=== PATIENT | female | born 1990 | race Two or more races ===

== ENCOUNTER 2024-04-18 08:48 | Emergency (ER) | payer MEDICAID, SELFPAY ==
--- NOTE | 2024-04-18 09:03 | PD.EDABDPN ---
ED Abdominal Pain RME/HPI General Chief Complaint: Abdominal Pain Stated complaint: ABD PAIN Time seen by provider: 04/18/24 08:54 Arrival date/time: 04/18/24 08:48 RME / HPI RME / HPI narrative: This section includes all my notes and documentations, including HPI, PE, and ED course.? Pk Valdez MD HPI: 33 year old female with no stated medical history presents to the ED for evaluation of abdominal pain beginning 2 days ago. Described as aching in sensation that is located most to the epigastric and right upper quadrant. Accompanied by nausea and nonbloody vomiting. Denies any history of similar pain. Denies any changes in appetite. Denies fevers, chills, chest pain, shortness of breath, cough, diarrhea, or urinary symptoms. No previous abdominal surgeries. No other complaints. ROS: All negative except as documented in HPI. Physical Exam: General:? Alert and oriented.? No acute distress when remaining still.?? Eyes:? Conjunctivae and lids clear.? ENT:? No nasal congestion.? Neck:? Supple.? Heart:? RRR.? Lungs:? No respiratory distress.? Good air movement.? No rhonchi, wheezing, rales.?? Abdomen:?Epigastric and left pelvic tenderness. Soft.?? Legs:? No clubbing, cyanosis, edema.? Skin:? Warm and dry.?? Neuro:? Alert and oriented X 3.?? I reviewed all diagnostic test results. My review of the abdominal CT report is?enlarged left ovarian area. My review of the GB ultrasound report is no acute findings. Blood tests and urine tests?unremarkable. At this point, diagnoses include?GERD and pelvic pain due to left ovarian cyst. Treatment here included?Zofran and famotidine and Protonix. Epigastric pain improved. Recommended more outpatient workup. Based on my best medical judgment, made decision no further evaluation or treatment indicated at this time.? Patient understands and agrees to the discharge instructions customized and printed, see below. Discharge Instructions from Dr. Valdez printed for you: 1. After extensive evaluation, there is no emergency such as gallstones with infection or appendicitis needing urgent surgery. 2. Your upper abdominal pain is due to GERD (acid reflux), see attached handout. Zofran for nausea/vomiting. Omeprazole in the morning and famotidine in the evening as needed, both is safe for breast-feeding. 3. Your left sided lower abdominal pain is due to large ovarian cyst, see attached handout. Apply ice or heat if helpful. Tylenol with codeine for severe pain. 4. See a private doctor on 04/20/2024 for recheck and further care. Ask to review all test results and official radiology reports, to make sure you receive all necessary follow-ups and monitoring. To make sure there is no serious intra-abdominal condition for your upper abdominal pain, ask for help with more investigation not available here in the ER. Such as EGD or scoping the stomach, colonoscopy or scoping the colon, and referral to see supervisor show operations. For your left sided lower abdominal pain, ask for help with pelvic ultrasound and referral to see induction machine operator. 5. Seek immediate medical care with worsening or with other concerns. Instrucciones de deysi del Dr. Valdez impresas para usted: 1. Despu?s de scotty evaluaci?n exhaustiva, no hay ninguna emergencia swetha c?lculos biliares con infecci?n o apendicitis que requieran cirug?a urgente. 2. Stout dolor abdominal superior se debe a ERGE (reflujo ?cido), consulte el folleto adjunto. Zofran para n?useas/v?mitos. Omeprazol por la ma?francisco y famotidina por la noche seg?n sea necesario, ambos son seguros para la lactancia. 3. Stout dolor abdominal inferior del lado donna se debe a un quiste ov?rico sohail, consulte el folleto adjunto. Aplique hielo o calor si es ?til. Tylenol con code?na para el dolor intenso. 4. Consulte a un m?dico privado el 04/20/2024 para volver a controlarlo y recibir m?s atenci?n. Solicite revisar todos los resultados de las pruebas y los informes radiol?gicos oficiales, para asegurarse de recibir todos los seguimientos y monitoreo necesarios. Para asegurarse de que no haya scotty afecci?n intraabdominal grave para stout dolor abdominal superior, solicite ayuda con m?s investigaciones que no est?n disponibles aqu? en la robert de emergencias. [place] EGD o endoscopia del est?divya, colonoscopia o endoscopia del colon y derivaci?n a un gastroenter?logo. Para el dolor abdominal inferior del lado donna, solicite ayuda con scotty ecograf?a p?lvica y scotty derivaci?n a un ginec?logo. 5. Busque atenci?n m?dica inmediata si el dolor empeora o tiene otras inquietudes. Related Data Home Medications ?Medication ?Instructions ?Recorded ?Confirmed Vitamin * 1 tab PO QDAY SUPPLEMENT #0 tabs 06/04/14 07/07/17 Previous Rx's ?Medication ?Instructions ?Recorded docusate sodium 100 mg capsule 100 mg PO QDAY #20 caps 07/08/17 (Colace) acetaminophen-caffeine 500 mg-65 1 tab PO Q6H PRN pain #30 tabs 01/13/23 mg tablet (Excedrin Tension Headache) ibuprofen 800 mg tablet 800 mg PO TID PRN pain #30 tabs 01/13/23 acetaminophen 300 mg-codeine 30 mg 2 tab PO TID PRN pain #20 tabs 04/18/24 tablet famotidine 40 mg tablet 40 mg PO QDAY #30 tabs 04/18/24 omeprazole 40 mg capsule,delayed 40 mg PO QDAY #30 caps 04/18/24 release ondansetron 4 mg disintegrating 4 mg PO TID PRN nausea and 04/18/24 tablet vomiting 5 days #10 tabs Allergies Allergy/AdvReac Type Severity Reaction Status Date / Time No Known Allergies Allergy Unverified 01/13/23 09:43 Review of Systems Review of Systems Systems Reviewed: All systems reviewed, normal except as documented Past Medical History Past Medical History NEUROLOGIC: Negative Neurological Disorders CARDIAC: Negative Cardiac Disorders GASTROINTESTINAL: Negative Gastrointestinal Disorders GENITOURINARY: Negative Genitourinary Disorders or Renal Disease MUSCULOSKELETAL: Negative Musculoskeletal Disorders ENDOCRINE: Negative Endocrine Disorders OTHER HISTORY: Positive Hospitalization (childbirth only) Family History FAMILY HISTORY: Negative Family Psychiatric Problems, Family Respiratory Disorders, Family Cardiac Disorders, Family Gastrointestinal Problems, Family Cancer, Family Surgery or Family Anesthesia Reaction Surgical History SURGICAL: Negative Cardiac Surgery or Section Social History SMOKING STATUS: Never smoker SECOND HAND EXPOSURE: No ED Exam Narrative Physical exam: As noted in HPI Course Quality Measures none Orders Category Date Time Status CT abdomen pelvis wo con Stat Exams 04/18/24 09:06 Completed US gall bladder Stat Exams 04/18/24 09:07 Completed Amylase Stat Lab 04/18/24 09:25 Completed CBC Stat Lab 04/18/24 09:25 Completed CMP [Comprehensive Metabolic Panel] Stat Lab 04/18/24 09:25 Completed HCG Qualitative,Urine Stat Lab 04/18/24 09:41 Completed HCG,Qualitative Serum Stat Lab 04/18/24 09:25 Completed Lipase Stat Lab 04/18/24 09:25 Completed Magnesium Stat Lab 04/18/24 09:25 Completed UA, C/S IF [Urinalysis, C/S if Indicated] Stat Lab 04/18/24 09:41 Completed Famotidine [Pepcid] Med 04/18/24 09:05 Discontinued 40 mg PO X1 ONE Ondansetron Odt [Zofran Odt] Med 04/18/24 09:05 Discontinued 4 mg PO X1 ONE Pantoprazole [Protonix] Med 04/18/24 09:05 Discontinued 40 mg PO X1 ONE Vital Signs Vital signs: Vital Signs Temperature 99.0 F 04/18/24 09:24 Pulse Rate 91 04/18/24 09:24 Respiratory Rate 16 04/18/24 09:24 Blood Pressure 125/85 H 04/18/24 09:24 Pulse Oximetry (%) 98 04/18/24 09:24 Oxygen Delivery Method Room Air 04/18/24 09:24 Pulse ox is 98% on room air which is adequate. Abdominal Pain MDM MDM Narrative MDM Narrative:: Helena Unger am scribing for and in the presence of Dr. Valdez. Patient data External records reviewed:: [facility] previous records (I reviewed ED visit on 01/13/2023) Clinical information provided by:: patient Social determinants that could affect healthcare access:: none Patient has the following chronic illnesses:: No chronic medical hx reported How is presenting disease/condition affected by chronic disease/condition?: no chronic disease Evaluation data The following diagnostics were reviewed and interpreted by me:: lab results and radiology exam(s) Lab and/or radiology exams considered but not ordered:: None Interpretation Summary: None GERD and pelvic pain Medications / Prescriptions Medications or Prescriptions considered but not ordered:: None Medication administrations:: Medication Administration History Discontinued Medications Famotidine (Famotidine 20 Mg Tablet) 40 mg PO X1 ONE Stop: 04/18/24 09:06 Last Admin: 04/18/24 09:20 Dose: 40 mg Documented By: DO Ondansetron HCl (Ondansetron Odt 4 Mg Tabrap) 4 mg PO X1 ONE; Protocol Stop: 04/18/24 09:06 Last Admin: 04/18/24 09:20 Dose: 4 mg Documented By: DO Pantoprazole Sodium (Pantoprazole 40 Mg Tablet) 40 mg PO X1 ONE Stop: 04/18/24 09:06 Last Admin: 04/18/24 09:20 Dose: 40 mg Documented By: DO Patient given Famotidine, Zofran, Pantoprazole Consultations Consultation(s) initiated? (list below): No Diagnosis Differential diagnosis abdominal pain: abdominal pain, acute appendicitis, calculus of kidney, constipation, diverticulitis, endometriosis, gastroenteritis, pancreatitis and small bowel obstruction Most likely diagnosis given after review of the tests above:: GERD and pelvic pain Admission Indicated Admission indicated?: not indicated Explain why admission is indicated or not indicated:: Does not meet admission criteria Admission Request Was there a request for admission?: No Disposition Plan Disposition Plan: Discharge Discharge Attestation Discharge Attestation: The patient and all family members were given an opportunity to ask questions and understood the discharge instructions. Discharge instructions specifically effects, indications for sooner follow up or return to the emergency department, and the expected course of current diagnosis. Patient condition: Stable Discharge Plan Plan Patient Disposition: HOME (Self Care) Prescriptions/Referrals Prescriptions/Med Rec: New famotidine 40 mg tablet 40 mg PO QDAY Qty: 30 0RF acetaminophen-codeine 300-30 mg tablet 2 tab PO TID MDD 6 PRN (Reason: pain) Qty: 20 0RF omeprazole 40 mg capsule,delayed release(DR/EC) 40 mg PO QDAY Qty: 30 0RF ondansetron 4 mg tablet,disintegrating 4 mg PO TID PRN (Reason: nausea and vomiting) 5 Days Qty: 10 0RF No Action Vitamin * 1 EACH tablet 1 tab PO QDAY Qty: 0 docusate sodium [Colace] 100 mg capsule 100 mg PO QDAY Qty: 20 0RF Excedrin Tension Headache 500-65 mg tablet 1 tab PO Q6H PRN (Reason: pain) Qty: 30 0RF ibuprofen 800 mg tablet 800 mg PO TID PRN (Reason: pain) Qty: 30 0RF Referrals: Patrick White MD [Primary Care Provider] - In 1 week Problem List Clinical Impression: Abdominal pain Patient/Caregiver Discharge Instructions Discharge Activity: activity as tolerated Education Materials: ED GERD (Adult), ED Ovarian Cyst Additional Instructions: Discharge Instructions from Dr. Valdez printed for you: 1. After extensive evaluation, there is no emergency such as gallstones with infection or appendicitis needing urgent surgery. 2. Your upper abdominal pain is due to GERD (acid reflux), see attached handout. Zofran for nausea/vomiting. Omeprazole in the morning and famotidine in the evening as needed, both is safe for breast-feeding. 3. Your left sided lower abdominal pain is due to large ovarian cyst, see attached handout. Apply ice or heat if helpful. Tylenol with codeine for severe pain. 4. See a private doctor on 04/20/2024 for recheck and further care. Ask to review all test results and official radiology reports, to make sure you receive all necessary follow-ups and monitoring. To make sure there is no serious intra-abdominal condition for your upper abdominal pain, ask for help with more investigation not available here in the ER. Such as EGD or scoping the stomach, colonoscopy or scoping the colon, and referral to see supervisor show operations. For your left sided lower abdominal pain, ask for help with pelvic ultrasound and referral to see induction machine operator. 5. Seek immediate medical care with worsening or with other concerns. Instrucciones de deysi del Dr. Valdez impresas para usted: 1. Despu?s de scotty evaluaci?n exhaustiva, no hay ninguna emergencia swetha c?lculos biliares con infecci?n o apendicitis que requieran cirug?a urgente. 2. Stout dolor abdominal superior se debe a ERGE (reflujo ?cido), consulte el folleto adjunto. Zofran para n?useas/v?mitos. Omeprazol por la ma?francisco y famotidina por la noche seg?n sea necesario, ambos son seguros para la lactancia. 3. Stout dolor abdominal inferior del lado donna se debe a un quiste ov?rico sohail, consulte el folleto adjunto. Aplique hielo o calor si es ?til. Tylenol con code?na para el dolor intenso. 4. Consulte a un m?dico privado el 04/20/2024 para volver a controlarlo y recibir m?s atenci?n. Solicite revisar todos los resultados de las pruebas y los informes radiol?gicos oficiales, para asegurarse de recibir todos los seguimientos y monitoreo necesarios. Para asegurarse de que no haya scotty afecci?n intraabdominal grave para stout dolor abdominal superior, solicite ayuda con m?s investigaciones que no est?n disponibles aqu? en la robert de emergencias. [place] EGD o endoscopia del est?divya, colonoscopia o endoscopia del colon y derivaci?n a un gastroenter?logo. Para el dolor abdominal inferior del lado donna, solicite ayuda con scotty ecograf?a p?lvica y scotty derivaci?n a un ginec?logo. 5. Busque atenci?n m?dica inmediata si el dolor empeora o tiene otras inquietudes. Print Language: [place] Stand Alone Forms: [employer] Award Info., Patient Portal Info Letter
--- NOTE | 2024-04-18 09:06 | XR_ITS ---
Examination: CT abdomen and pelvis without contrast. Coronal 3-D reconstructions. Sagittal 2-D reconstructions. Date and time of exam:April 18, 2024 1017 hours INDICATIONS: Onset right-sided flank pain today CTDI: vol (mGy): 8.33 DLP: (mGycm): 461 Technique: Axial images of the abdomen have been obtained, 3 mm slice thickness Intravenous contrast material has not been administered. Low dose protocols were performed. One or more of the following dose reduction techniques were used; automated exposure control, adjustment of the mA and/or KV according to patient size, use of iterative reconstruction technique. Findings: No focal liver or splenic lesions No gallstones No pancreatic or adrenal mass 25 mm low-density posterior left renal lesion likely cyst No renal or ureteral calculi, no hydronephrosis Aorta normal size Small lymph nodes in the right lower mesentery Normal appendix No bowel obstruction Prominent left ovary 35 mm Anteverted uterus The osseous structures are intact Contracted urinary bladder IMPRESSION: No renal or ureteral calculi, no hydronephrosis Normal appendix Recommend pelvic sonography to exclude enlarged left ovary
--- NOTE | 2024-04-18 09:07 | XR_ITS ---
Examination: Abdomen sonogram, Limited Date and time of exam: April 18, 2024 0957 hours INDICATIONS: Right upper abdominal pain nausea vomiting beginning 2 days ago Technique: Real-time ansari scale transabdominal sonographic images of the upper abdomen obtained. Findings: Normal gallbladder Normal common bile duct 0.3 cm Pancreatic head 2.5 cm Liver 16.2 cm no focal liver lesions Normal hepatopedal portal venous flow Patent IVC IMPRESSION: Negative study
[2024-04-18] MEDS: FAMOTIDINE 20 MG TABLET 40 MG PO (09:20)
[2024-04-18] MEDS: PANTOPRAZOLE 40 MG TABLET PO (09:20)
[2024-04-18] MEDS: ONDANSETRON ODT 4 MG TABRAP PO (09:20)
[2024-04-18 09:24] VITALS: BP 125/85; PULSE 91; RESP 16; TEMP 37.2; O2SAT 98; BMI 29.5
[2024-04-18 09:48] LABS: Basophils % (Auto) 0 % (0-2.5); Eosinophils # (Auto) 0.1 Thou/mm3 (0.0-0.5); Eosinophils % (Auto) 1 % (0-10); Hematocrit 44.5 % (36.0-46.0); Immature Granulocytes % (Auto) 1 % (0-0); Lymphocytes # (Auto) 2.4 Thou/mm3 (1.0-4.8); Lymphocytes % (Auto) 23 % (10-50); Mean Corpuscular HGB Conc 33.7 g/dl (31.0-37.0); Mean Corpuscular Hemoglobin 31.3 pg (25.0-35.0); Mean Corpuscular Volume 93 fL (80-100); Monocytes # (Auto) 0.7 Thou/mm3 (0.0-0.8); Monocytes % (Auto) 7 % (0-12); Neutrophils % (Auto) 68 % (37-80); Nucleated Red Blood Cell % 0 /100 WBC (0); Platelet Count 278 Thou/mm3 (140-440); RDW Standard Deviation 44.5 fL (36.4-46.3); Red Blood Count 4.79 Miln/mm3 (4.00-5.20); White Blood Count 10.3 Thou/mm3 (3.6-11.0)
[2024-04-18 09:52] LABS: Collection Type, Urine Clean Catch
[2024-04-18 10:05] LABS: Bacteria,Urine Rare; Bilirubin,Urine Negative (Negative); Blood,Urine Trace (Negative); Clarity,Urine Clear (Clear/Hazy); Color,Urine Lt-Yellow (Lt Yel-Yel); Culture Indicated,Urine Not Indicated; Glucose, Urine Negative (Negative); Ketones,Urine Negative (Negative); Leukocyte Esterase,Urine Negative (Negative); Nitrite,Urine Negative (Negative); Protein,Urine Negative (Neg - Trace); RBC,Urine 3 /hpf (0-3); Specific Gravity,Urine 1.022 (1.001-1.035); Squamous Epithelial Cell,Urine 11 /hpf (0-5); Urobilinogen,Urine Negative mg/dL (0.0-1.0); WBC,Urine 2 /hpf (0-5)
[2024-04-18 10:06] LABS: HCG Qualitative,Urine Negative
[2024-04-18 10:07] LABS: Alanine Aminotransferase 14 U/L (10-49); Albumin, Serum 5.3 gm/dL (3.5-5.0); Albumin/Globulin Ratio 2.1 (1.2-2.2); Alkaline Phosphatase 92 U/L (46-116); Amylase 105 U/L (30-118); Anion Gap 10 (7-16); Aspartate Amino Transferase 12 U/L (0-34); BUN/Creatinine Ratio 21 Ratio (12-20); Bilirubin,Total 0.7 mg/dL (0.3-1.2); Blood Urea Nitrogen 17 mg/dL (9-23); Calcium 9.9 mg/dL (8.3-10.6); Calcium (Corrected) 9.9 mg/dL (8.5-10.1); Carbon Dioxide 25.2 mMol/L (20.0-31.0); Chloride 106 mMol/L (98-107); Creatinine (Component) 0.8 mg/dL (0.6-1.3); Estimated Creatinine Clearance 95.7 mL/min (>60); Globulin 2.5 gm/dL (2.3-3.5); Glucose 95 mg/dL (74-106); Lipase 44 U/L (12-53); Magnesium 2.2 mg/dL (1.6-2.6); Osmolality,Calculated 282 (275-295); Potassium 3.9 mMol/L (3.4-5.1); Sodium 141 mMol/L (136-145); Total Protein 7.8 gm/dL (5.7-8.2); eGFR > 60 See Note
[2024-04-18 10:09] LABS: HCG,Qualitative Serum Negative
== END 2024-04-18 12:25 | disposition home or self-care (01) ==
PROVIDERS: Emergency Provider Emergency Medicine; PCP Family Medicine
DX: K21.9 Gastro-esophageal reflux disease without esophagitis (principal); N83.202 Unspecified ovarian cyst, left side
CPT/HCPCS: 36415; 74176; 76705; 80053; 81001; 81025; 82150; 83690; 83735; 84703; 85025; 99284; Q0162; A9270